=== PATIENT | female | born 2000 | race African-American/Black ===

== ENCOUNTER 2022-07-16 16:49 | Emergency (ER) | payer BC, SELFPAY ==
[2022-07-16 17:00] VITALS: BP 134/84; PULSE 106; RESP 16; TEMP 37.9; O2SAT 100
--- NOTE | 2022-07-16 17:18 | ED.URI ---
HPI - URI/Sore Throat General Stated Complaint: Sore throat Time Seen by Provider: 07/16/22 17:05 Source: patient Mode of arrival: ambulatory Limitations: no limitations History of Present Illness HPI Narrative: Ms. Mazariegos is a 21-year-old female patient presenting to the clinic today with complaints of a sore throat. She reports that she was seen at another urgent care 10 days ago and received antibiotics for sore throat. She has 1 more day left of her amoxicillin and she woke up this morning noticing some more exudate on her throat. She denies any fever or chills currently. She reports that she does have some cough and some nasal drainage with fatigue. Review of Systems Review of Systems: Pertinent positives per HPI. Patient denies any fever, chills, rash, headache, visual changes, dizziness, shortness of breath, chest pain, palpitations, nausea, vomiting, diarrhea, constipation, abdominal pain, or any urinary issues. PMFSH Comments At the time of my signature, I reviewed and agree with the nursing past medical, surgical, social, and family history. There is no relevant family history pertinent to the patient complaint. Exam Narrative: General: Well-developed, well nourished, in no apparent distress Head: Normocephalic, atraumatic Eyes: Pupils equally round and reactive to light bilaterally, EOM intact, sclera and conjunctive clear, no discharge, lids normal Ears: TMs intact and clear, ear canals clear, no drainage, grossly hearing normal. Nose: Nares patent, no discharge, no inflammation, no sinus tenderness. Mouth: Oropharynx without lesions or masses, good dentition, MMM. Oropharynx red, tonsillar enlargement with whitish exudate. Neck: Supple, trachea midline, no enlargement of anterior or posterior cervical nodes, no thyroid masses or goiter palpable. Cardio: Regular rate and rhythm, s1 and s2 normal, no murmur appreciated. Resp: Clear to auscultation bilaterally anteriorly and posteriorly, no rhonchi, rales, wheezing or rubs Course Course Emergency Course: Portions of this record may have been created with voice recognition software. Level of Care: Express Care Visit Vital Signs Vital signs: Vital Signs Temperature 37.9 C H 07/16/22 17:00 Pulse Rate 106 H 07/16/22 17:00 Respiratory Rate 16 07/16/22 17:00 Blood Pressure 134/84 07/16/22 17:00 Pulse Oximetry 100 07/16/22 17:00 Oxygen Delivery Room Air 07/16/22 17:00 Temperature 37.9 C H 07/16/22 17:00 Pulse Rate 106 H 07/16/22 17:00 Respiratory Rate 16 07/16/22 17:00 Blood Pressure 134/84 07/16/22 17:00 Pulse Oximetry 100 07/16/22 17:00 Oxygen Delivery Room Air 07/16/22 17:00 Vital signs reviewed MDM - URI/Sore Throat MDM Narrative Medical decision making narrative: At the time of visit patient is resting comfortably on the exam table. She has 1 more dose of antibiotic to take. She denies any rash. [place] testing was completed in the clinic and it was negative. I will get a throat culture and sent to the lab to see if there is any other type of bacterial infection. Supportive measures were discussed with the patient she is voiced understanding of discharge instructions and agrees to treatment plan Differential Diagnosis Differential diagnosis: Likely upper respiratory infection, pharyngitis and other ([place], viral infection) Lab Data Labs: [place] Screen Negative (Reference Range: Negative) Discharge Plan Discharge Clinical Impression: Exudative pharyngitis Patient Disposition: Home, Self-Care Condition: Stable Instructions: Antibiotic Form, Pharyngitis (ED) Additional Instructions: [place] testing was negative in the clinic today. We will send throat culture. Finish taking amoxicillin as prescribed Increase fluids and stay well hydrated Tylenol/motrin for pain/fever Flonase and OTC ant
== END 2022-07-16 18:04 | disposition home or self-care (01) ==
PROVIDERS: Emergency Provider Nurse Practitioner Family
DX: J02.9 Acute pharyngitis, unspecified (principal)
CPT/HCPCS: 36416; 86308; 87081; 99203; G0463

== ENCOUNTER 2023-03-23 15:00 | Emergency (ER) | payer BC, SELFPAY ==
[2023-03-23 15:06] VITALS: BP 144/66; PULSE 70; RESP 16; TEMP 37.1; O2SAT 100
--- NOTE | 2023-03-23 15:06 | ED.EYEPROB ---
HPI - Eye Problem General Chief complaint: Eye Problems Stated complaint: eye irritiation Time Seen by Provider: 03/23/23 15:09 Source: patient, RN notes reviewed and old records reviewed Mode of arrival: ambulatory Limitations: no limitations History of Present Illness HPI Narrative: 22-year-old female presents to the [facility] with complaints of bilateral eye irritation. Patient states that started in the right eye to 3 days ago, had crusting on Wednesday in the right eye. Woke up this morning in the left eye was crusted shut with redness. No treatment prior to arrival Works at a [employer] (ago): day(s) (3) Related Data Patient tetanus UTD: Yes Allergies Allergy/AdvReac Type Severity Reaction Status Date / Time No Known Allergies Allergy Verified 03/23/23 15:13 Review of Systems Review of Systems: All systems reviewed & are unremarkable except as noted in HPI and below Constitutional: Constitutional: Reports no additional constitutional complaints Eyes: Eyes: Reports as per HPI ENT: Reports system reviewed and no additional complaints, except as documented Cardiovascular: Cardiovascular: Reports no additional cardiovascular complaints, Denies chest pain and Denies dyspnea Respiratory: Respiratory: Reports no additional respiratory complaints, Denies chest congestion, Denies cough and Denies dyspnea Gastrointestinal: Gastrointestinal: Reports no additional gastrointestinal complaints, Denies abdominal pain, Denies nausea and Denies vomiting Musculoskeletal: Musculoskeletal: Reports no additional musculoskeletal complaints Integumentary/Breasts: Skin/Breast: Reports system reviewed and no additional complaints, except as docu Neurologic: Reports system reviewed and no additional complaints, except as documented Psychiatric: Psychiatric: Reports no additional psychiatric complaints Allergic/Immunologic: Allergic/Immunologic: Reports no additional allergic/immunologic complaints [facility] Past Medical History Medical History Patient denies medical problems Surgical History Surgical History (Updated 03/23/23 @ 15:15 by Colette Seymour APRN) No history of previous surgery Social History Social History (Updated 03/23/23 @ 15:15 by Colette Seymour APRN) Gender identity (if verbalized by the patient): Female Comments At the time of my signature, I reviewed and agree with the nursing past medical, surgical, social, and family history. There is no relevant family history pertinent to the patient complaint. Exam Const: General: cooperative, healthy appearing, comfortable, no acute distress, well developed, alert and well nourished Nutritional Appearance: well nourished Orientation/consciousness: patient oriented x3 Limitations: no limitations HENMT: Head: normal to inspection Ears: hearing grossly normal bilaterally and external ears normal Face/Nose/Sinus: Normal external nose present, Normal nares present, Normal nasal mucous membranes and turbinates present and normal facial exam Face and sinus: normal facial exam Mouth: Yes Normal oral and palatal mucosa present, Yes lip normal and Yes moist mucous membranes Throat: posterior oropharynx normal and uvula midline Eyes: General: appearance normal, both eyes and all related structures Alignment and Position: alignment normal Periorbital: periorbital findings normal Conjunctivae: conjunctival abnormality bilateral conjunctival injection localized (Bilateral lower lids) and discharge (Crusting noted to the bottom lid lashes left eye) Cornea: corneas normal Pupils: Equal, round and reactive pupils present EOM: EOMs intact bilaterally Neck: Neck: normal visual inspection, full ROM, no lymphadenopathy and no meningeal signs Chest: Chest palpation & inspection: normal inspection of the chest Resp: Effort & Inspection: normal respiratory effort and able to speak in complete sentences Auscultation: sergio
== END 2023-03-23 15:20 | disposition home or self-care (01) ==
PROVIDERS: Emergency Provider Nurse Practitioner
DX: H10.33 Unspecified acute conjunctivitis, bilateral (principal)
CPT/HCPCS: 99213; G0463

== ENCOUNTER 2025-03-23 13:52 | Emergency (ER) | payer BC, SELFPAY ==
[2025-03-23 14:08] VITALS: BP 125/64; PULSE 68; RESP 20; TEMP 36.4; O2SAT 100
--- NOTE | 2025-03-23 14:14 | ED_ITS ---
HPI - Female Genitourinary General Chief complaint: Urogenital-Female Stated complaint: STD testing Time Seen by Provider: 03/23/25 14:14 Source: patient Mode of arrival: ambulatory Limitations: no limitations History of Present Illness HPI Narrative: 24-year-old female presents with concern for STI. Patient is asymptomatic. Patient states that her partner told her to get checked because he has multiple partners. Patient's partner did not give her any other information such as if he tested positive or if he is having any symptoms. All systems reviewed and negative except as noted. Related Data Home Medications ?Medication ?Instructions ?Recorded ?Confirmed ?Last Taken ?Type No Home Medications 03/23/25 03/23/25 Unknown History Allergies Allergy/AdvReac Type Severity Reaction Status Date / Time No Known Allergies Allergy Verified 03/23/25 14:20 Review of Systems Review of Systems: CONSTITUTIONAL: Denies fever, chills, or sweats. EYES: Denies visual changes, redness, or discharge. ENT: Denies rhinorrhea, congestion, sore throat, or otalgia. CARDIOVASCULAR: Denies chest pain, palpitations, or edema. RESPIRATORY: Denies cough or dyspnea. GASTROINTESTINAL: Denies abdominal pain, nausea, vomiting, or diarrhea. GENITOURINARY: Denies dysuria or hematuria. SKIN: Denies rash or itching. MUSCULOSKELETAL: Denies back pain, joint pain, or myalgia. NEUROLOGIC: Denies headache, numbness, or weakness. PSYCHIATRIC: Denies anxiety or depression. All other systems reviewed are negative, except as documented in HPI. PMFSH Past Medical History Medical History Patient denies medical problems Surgical History Surgical History (Updated 03/23/23 @ 15:15 by Colette Seymour APRN) No history of previous surgery Social History Social History (Updated 03/23/23 @ 15:15 by Colette Seymour APRN) Gender identity (if verbalized by the patient): Female Comments At time of signature, agree with nursing past medical, surgical, social and family history. There is no relevant family history pertinent to the presenting complaint. Exam Narrative: GENERAL: This is a well-nourished, well-developed patient, in no apparent distress. HEAD: normocephalic, atraumatic. EYES: PERRL. Sclera clear/white. Vision is grossly intact. EARS: External ears normal NOSE: External nose normal NECK: Neck supple, non-tender without lymphadenopathy, masses or thyromegaly. CARDIOVASCULAR: Regular rate and rhythm without murmurs, gallops, or rubs. RESPIRATORY: Clear to auscultation. Breath sounds equal bilaterally. No wheezes, rales, or rhonchi. SKIN: warm, Dry, intact with no suspicious lesions or rash, good texture and turgor. NEURO: awake, alert, and oriented to person, place and time. There were no obvious focal neurologic abnormalities. EXTREMITIES: No joint tenderness, effusion, or edema noted. Course Course Level of Care: Express Care Visit Vital Signs Vital signs: Vital Signs Temperature 36.4 C 03/23/25 14:08 Pulse Rate 68 03/23/25 14:08 Respiratory Rate 20 03/23/25 14:08 Blood Pressure 125/64 03/23/25 14:08 Pulse Oximetry 100 03/23/25 14:08 Oxygen Delivery Room Air 03/23/25 14:08 Temperature 36.4 C 03/23/25 14:08 Pulse Rate 68 03/23/25 14:08 Respiratory Rate 20 03/23/25 14:08 Blood Pressure 125/64 03/23/25 14:08 Pulse Oximetry 100 03/23/25 14:08 Oxygen Delivery Room Air 03/23/25 14:08 Reviewed MDM - Female Genitourinary MDM Narrative Medical decision making narrative: urinalysis normal. test negative. STI testing sent off for Trichomonas, gonorrhea and chlamydia. Patient will wait for test results prior to treating with antibiotics. Patient is asymptomatic. Please be advised this is a medical document. It is intended for [id number] communication. It is written in medical language and may contain unfamiliar abbreviations or verbiage. Medical documents are intended to carry relevant information, facts as evident, and the clinical opinion of the practitioner at the time of the encounter. This report may have been done utilizing a voice recognition system. Attempts have been made to correct errors. However, there may be uncorrected grammatical, spelling, and recognition errors present. The file time of this note does not necessarily represent the time of service. Lab Data Labs: Lab Results 03/23/25 Range/Units 14:18 POC Urine Color Yellow POC Urine Clarity Clear POC Urine pH 7.0 POC Ur Specif [place] 1.015 POC Urine Protein Negative (Negative) POC Ur Glucose (UA) Negative (Negative) POC Urine Ketones Negative (Negative) POC Urine Blood Negative (Negative) POC Urine Nitrite Negative (Negative) POC Urine Bilirubin Negative (Negative) POC Urine Urobilinogen 0.2 POC U Leukocyte Esteras Negative (Negative) POC Urine HCG, Qual Negative (Negative) Discharge Plan Discharge Clinical Impression: Concern about STD in female without diagnosis Patient Disposition: Home Condition: Stable Instructions: Sexually Transmitted Diseases (ED) Additional Instructions: your urinalysis and test were negative today. Urine test were sent off for gonorrhea, chlamydia and Trichomonas. Test results may take 3-5 days. If one of your test results is positive we will call you at that time and prescribed treatment. 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 Patient Language: Samoan Prescriptions: No Action No Home Medications Follow-up/Referrals: PHYSICIAN,FRICTION SAW OPERATOR [Primary Care Provider] - Time of Disposition: 14:24
[2025-03-23 14:24] LABS: BEDSIDEPREGUCG Negative (Negative); EDUAAPPEAR Clear; EDUABILI Negative (Negative); EDUABLOOD Negative (Negative); EDUACOLOR1 Yellow; EDUAGLUCOSE Negative (Negative); EDUAKETONE Negative (Negative); EDUALEUKO Negative (Negative); EDUANITRATE Negative (Negative); EDUAPROTEIN Negative (Negative); EDUASPGRAVITY 1.015; EDUAUROBILI 0.2
[2025-03-23 18:55] LABS: Trichomonas Vag PCR NOT DETECTED (NOT DETECTE)
[2025-03-23 19:17] LABS: Chlamydia trachomatis NOT DETECTED (NOT DETECTE); Neisseria gonorrhoeae PCR NOT DETECTED (NOT DETECTE)
== END 2025-03-23 14:29 | disposition home or self-care (01) ==
PROVIDERS: Emergency Provider Nurse Practitioner Family
DX: Z20.2 Contact with and (suspected) exposure to infections with a predominantly sexual mode of transmission (principal)
CPT/HCPCS: 81003; 81025; 87491; 87591; 87661; 99213; G0463

== ENCOUNTER 2025-04-03 11:08 | Emergency (ER) | payer BC, SELFPAY ==
[2025-04-03 11:21] VITALS: BP 135/74; PULSE 81; RESP 16; TEMP 36.6; O2SAT 100
--- OUTSIDE RECORDS SUMMARY | 2025-04-03 11:33 | XMS_ITS | Data Portability ---
Author Organization [employer] [facility] , [facility] Address [address] [place] [address] Assessment No assessment recorded. Plan of Treatment Reminders Order Date Submit Date Provider Last Modified By Organization Details Last Modified Time Details Appointments ANNUAL/W ELL WOMAN EST 2024 10:30A M CHAMP SOBC Not available Not available Not available Lab pap, LB + CT/NG/TV + reflex HPV mRNA E6/E7 2021 022 [place] [facility], [address] [place], [address], 04/30/2022 09:44:58 Referral None recorded . Procedures None recorded . Surgeries None recorded . Imaging None recorded . Medication Orders None recorded . Patient TargetsNo targets recorded. Patient Instructions Encounter Date Encounter Id Patient Instructions Last Modified By Organization Details Last Modified Time 04/28/2022 [id number] Patient Health Questionnaire-9* [email or web address] Not available 05/05/2022 14:02:04 learning about depression screening Not available 04/28/2022 15:17:42 weight managemen t education Not available 04/28/2022 15:17:42 body mass index: care instructions [email or web address] Not available 04/28/2022 15:17:42 Reason for Referral None Reported. Results Created Date Observation Date Name Description Value Unit Range Abnormal Flag Note LastModifiedBy Organization Detail LastModifiedTime 04/28/20 22 04/30/2022 THINP REP PAP REFLE X HPV MRNA E6/E7 , CT/NG , TRICH clinical information: normal Infor matio n not provi ded Not Available [facility] - [address] [address] [place], [address], 04/30/2022 09:44:58 04/28/20 22 04/30/2022 THINP REP PAP REFLE X HPV MRNA E6/E7 , CT/NG , TRICH LMP: normal NONE GIVEN Not Available [address] [place], [address], 04/30/2022 09:44:58 04/28/20 22 04/30/2022 THINP REP PAP REFLE X HPV MRNA E6/E7 , CT/NG , TRICH prev. Pap: normal NONE GIVEN Not Available [address], [address], 04/30/2022 09:44:58 04/28/20 22 04/30/2022 THINP REP PAP REFLE X HPV MRNA E6/E7 , CT/NG , TRICH prev. BX: normal NONE GIVEN Not Available [address], [address], 04/30/2022 09:44:58 04/28/20 22 04/30/2022 THINP REP PAP REFLE X HPV MRNA E6/E7 , CT/NG , TRICH source: normal Endoc ervix Not Available [address], [address], 04/30/2022 09:44:58 04/28/2004/30/2022 THINP REP PAP REFLE X HPV MRNA E6/E7 , CT/NG , TRICH statement of adequacy: normal Satis facto ry for evalu ation . Endoc ervic al/tr ansfo rmati on zone compo nent prese nt. Age and/o r menst rual statu s not provi ded Not Available [address] [place], [address], 04/30/2022 09:44:58 04/28/20 22 04/30/2022 THINP REP PAP REFLE X HPV MRNA E6/E7 , CT/NG , TRICH interpretati on/result: normal Negat say for intra epith elial lesio n or lela young . Not Available [address] [address] [place], [address], 04/30/2022 09:44:58 04/28/20 22 04/30/2022 THINP REP PAP REFLE X HPV MRNA E6/E7 , CT/NG , TRICH cytotechnolo gist: normal BKA, CT( CP) CT scree giovani locat ion: [address] [address] [place] [address] Not Available [facility] [address] [address] [place], [address], 04/30/2022 09:44:58 04/28/2004/30/2022 THINP REP PAP REFLE X HPV MRNA E6/E7 , CT/NG , TRICH review cytotechnolo gist: normal MEF, CT( CP) CT scree giovani locat ion: [address] [address] [place] [address] Not Available [facility] [address] [address] [place], [address], 04/30/2022 09:44:58 04/28/2004/30/2022 THINP REP PAP REFLE X HPV MRNA E6/E7 , CT/NG , TRICH comment EXPLA NATOR Y NOTE: The Pap is a scree giovani test for cervi galileo cance r. It is not a diagn ostic test and is subje ct to false negat say and false posit say resul ts. It is most relia ble when a satis facto ry sampl e, regul marcell obtai sheron, is submi tted with relev ant clini galileo findi ngs and histo ry, and when the Pap resul t is evalu ated along with histo arnulfo and curre nt clini galileo infor matio n. Not Available [facility] [address] [address] [place], [address], 04/30/2022 09:44:58 04/28/20 22 04/30/2022 THINP REP PAP REFLE X HPV MRNA E6/E7 , CT/NG , TRICH chlamydia trachomatis RNA, tma, urogenital NOT DETECT ED not detect ed normal Not Available [facility] [address], [address], 04/30/2022 09:44:58 04/28/20 22 04/30/2022 THINP REP PAP REFLE X HPV MRNA E6/E7 , CT/NG , TRICH neisseria gonorrhoeae RNA, tma, urogenital NOT DETECT ED not detect ed normal Not Available [facility] [address] [address] [place], [address], 04/30/2022 09:44:58 04/28/20 22 04/30/2022 THINP REP PAP REFLE X HPV MRNA E6/E7 , CT/NG , TRICH comment The patito tical perfo rmanc e arsenio cteri stics of this assay , when used to test SureP ath(T M) speci mens have been deter mined by [employer] ostic s. The modif icati ons have not been clear ed or appro deepak by the FDA. This assay has been valid ated pursu ant to the CLIA regul ation s and is used for clini galileo purpo ses. For addit ional randa barney refer to https ://ed ati on.qu quanArtspace. MaSpatule.com/f aq/FA Q154 (This link is being provi ded for clari dubois/ edward castañeda purpo ses only. ) Not Available [facility] [address] [address] [place], [address], 04/30/2022 09:44:58 04/28/20 22 04/30/2022 THINP REP PAP REFLE X HPV MRNA E6/E7 , CT/NG , TRICH trichomonas vaginalis, ql tma, Pap vial NOT DETECT ED not detect ed normal The patito tical perfo rmanc e arsenio cteri stics of this assay have been deter mined by [employer] ostic [employer]. The modif icati ons have not been clear ed or appro deepak by the FDA. This assay has been valid ated pursu ant to the CLIA regul ation s and is used for clini galileo purpo ses. For addit ional infor randa plata refer to http: //steve ulrich stdia gnost ics.c om/ faq/T bandar merlos (This link is being provi ded for infor jayy dubois/ edward zaldivarona l purpo ses only. ) Not Available [facility] [address] [place], [address], 04/30/2022 09:44:58 Result Notes None recorded. 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 ; Progress : Stable Added By: Selene Bermeo Add to Current Problems : NO ProblemS tatus: Resolve Not Available [facility] 2 22:07:06 Amenorrh ea 62584960 Completed 202004/07/2021 Amenorrh ea, unspecif ied; Progress : Stable Added By: Rosy Tadeo Add to Current Problems : NO ProblemS tatus: Resolve Not Available [facility] 2 22:07:[address] Concept Completed 202009/08/2021 Encounte r for follow-u p examinat ion after complete d treatmen t for conditio ns other than malignan t neoplasm ; Progress : Stable Added By: Selene Bermeo Add to Current Problems : NO ProblemS tatus: Resolve Not Available [facility] 2 22:07:04 Acute vaginiti s 48694721 Completed 202004/07/2021 Acute vaginiti s; Progress : Stable Added By: Rosy Tadeo Add to Current Problems : NO ProblemS tatus: Resolve Not Available [facility] 2 22:07:05 Sampling of vagina for Papanico laou smear Completed 202004/07/2021 Encounte r for gynecolo gical examinat ion (general ) (routine ) without abnormal findings ; Progress : Stable Added By: Mer Walden Add to Current Problems : NO ProblemS tatus: Resolve Not Available [facility] 2 22:07:03 Uses combined oral contrace ption 170932384 Completed 202004/07/2021 Encounte r for initial prescrip tion of contrace ptive pills; Severity : Moderate Progress : Stable Added By: Selene Bermeo Add to Current Problems : NO ProblemS tatus: Resolve Not Available [facility] 1 20:10:12 Chloride level - finding 832200785 Completed 202009/08/2021 Abnormal finding of blood chemistr y, unspecif ied; Progress : Stable Added By: Selene Bermeo Add to Current Problems : NO ProblemS tatus: Resolve Not Available [facility] 2 22:07:03 Uses combined oral contrace ption 880141210 Active 2020 Encounte r for initial prescrip tion of contrace ptive pills; Progress : Stable Added By: Selene Bermeo Add to Current Problems : NO ProblemS tatus: Resolve; Start Date : 03/28/20 Encou nter for surveill ance of contrace ptive pills; Progress : Stable Added By: Rosy Tadeo Add to Current Problems : YES ProblemS tatus: Current Not Available [facility] 2 22:07:03 Prediabe luda 332462280 Active 2020 Prediabe luda; Progress : Stable Added By: Selene Bermeo Add to Current Problems : YES ProblemS tatus: Current Not Available [facility] 2 22:07:04 Problem Notes None recorded. Medical Equipment None Reported. Allergies No known drug allergies Medications Name Sig Start Date Stop Date Status Note LastModified by Organization Details LastModified Time fluconazo le 150 mg tablet TAKE 1 TABLET BY MOUTH NOW AND THEN REPEAT IN 5-7 DAYS IF THERE ARE SYMPTOMS 04/28 completed Not Available Not Available Not Available metronida zole 0.75 % (37.5 mg/5 gram) vaginal gel INSERT 1 APPLICAT ORFUL VAGINALL Y AT BEDTIME FOR 5 NIGHTS 04/28 completed Not Available Not Available Not Available dextroamp hetamine- amphetami ne 10 mg tablet TAKE 1 TABLET BY MOUTH EVERY MORNING 04/28 completed Not Available Not Available Not Available terconazo le 0.8 % vaginal cream insert 1 applicat orful by vaginal route once daily at bedtime for 3 days 04/07 completed terconaz ole 0.8 % Vaginal Cream RxNorm: 670510 Allow Substitu tion: True Refill Denied: No Edited by: fabrizio(Rosy Roche ) on 04/07/20 Stopped by: fabrizio(Rosy Roche ) on 04/07/20 Not Available Not Available Not Available metronida zole 500 mg tablet take 1 tablet (500 mg) by oral route 2 times per day for 7 days 05/08 completed metroNID AZOLE 500 mg oral tablet RxNorm: 033209 Allow Substitu tion: True Refill Denied: No Edited by: fabrizio(Rosy Roche ) on 05/08/20 Stopped by: fabrizio(Rosy Roche ) on 05/08/20 Not Available Not Available Not Available metformin ER 500 mg tablet,ex tended release 24 hr take 1 tablet by mouth daily with evening meal 09/09 completed metFORMI N 500 mg oral Tablet, Extended Release 24 hr RxNorm: 165340 Allow Substitu tion: True Refill Denied: No Edited by: fabrizio(Rosy Roche ) on 09/09/20 Stopped by: fabrizio(Rosy Roche ) on 09/09/20 Not Available Not Available Not Available dextroamp hetamine- amphetami ne 5 mg tablet TAKE 1 TABLET BY MOUTH EVERY AFTERNOO N 04/28 completed Not Available Not Available Not Available azithromy mehran 500 mg tablet take 2 tablet (1000 mg) by oral route once as a single dose 04/07 completed azithrom ycin 500 mg oral tablet RxNorm: 237793 Allow Substitu tion: True Refill Denied: No Edited by: fabrizio(Rosy Roche ) on 04/07/20 Stopped by: fabrizio(Rosy Roche ) on 04/07/20 Not Available Not Available Not Available 12/11 (28) 1 mg-20 mcg (21)/75 mg (7) tablet TAKE 1 TABLET BY MOUTH EVERY DAY 2021 active Not Available Not Available Not Avai lable metformin ER 500 mg tablet,ex tended release 24hr (osmotic) TAKE 1 TABLET BY MOUTH ONCE DAILY WITH THE EVENING MEAL 04/28 completed METFORMI N ER 500 MG OSMOTIC TB Refill Denied: No Edited by: Clair Hoff) on 06/04/20 21 Stopped by: Clair Hoff) on Not Available Not Available Not Available metronida zole 1 % topical gel APPLY 1 APPLICAT OR (TOPICAL ) 1 TIME PER DAY FOR 5 DAYS 04/28 completed Not Available Not Available Not Available Vitals Date Recorded Body height Body mass index (BMI) Body weight Body temperature Systolic blood pressure Diastolic blood pressure Provider Name and Address Organization Details Last Updated DateTime 2 162.56 cm 28.8 kg/m2 59514.8 g 98 [degF] 124 mm[Hg] 72 mm[Hg] Mer Walden [facility] 2 15:08:53 Social History Question Answer Notes LastModified by Organizat ion Details LastModified Time Tobacco Smoking Status Never Smoker Mer Walden [facility] 04/28/2022 15:11:27 If You Are , What Was Your Level Of Alcohol Consumption Prior To ? Occasional Information not available 04/28/2022 Are You Blind Or Do You Have Difficulty Seeing? No Information not available 04/28/2022 Are You Deaf Or Do You Have Serious Difficulty Hearing? No Information not available 04/28/2022 What Type Of Diet Are You Following? REGULAR Information not available 04/28/2022 Which Illicit Or Recreational Drugs Have You Used? Marijuana Information not available 04/28/2022 What Is Your Relationship Status? Single Information not available 04/28/2022 Are You Sexually Active? Yes Information not available 04/28/2022 Have You Used IV Drugs? No Information not available 04/28/2022 Sex: Unknown Functional Status Question Answer Note LastModified by Organizat ion Details LastModified Time Do you use any illicit or recreational drugs? Yes Information not available 04/28/2022 Do you or have you ever used any other forms of tobacco or nicotine? No Information not available 04/28/2022 What is your level of alcohol consumption? Occasional Information not available 04/28/2022 What is your exercise level? Occasional Information not available 04/28/2022 Mental Status None recorded. Family History Relationship Description Onset Age of this Age Resolved Age Notes LastModified by Organization Details LastModified Time Father Disorder of coronary artery [email or web address] Not available 05/2022 12:57:14 Mother Hypertensive disorder [email or web address] Not available 05/2022 12:57:25 Medical History Condition Response Other Cancer N High Blood Pressure N Colon Cancer N Cytomegalovirus N Hyperthyroidism N MRSA N Breast Cancer N Herpes (HSV) N Blood Transfusion N Lung Cancer N Depression N Hypothyroidism N Incontinence N Panic Attacks N Neurological Disorder N Deep Vein Thrombosis N Anxiety Disorder N Autoimmune disease N Arthritis N Tuberculosis/Positive PPD N Shingles N Polycystic Ovarian Syndrome N Cervical Cancer N Hematuria N Chlamydia N Stroke N Varicosities N Seasonal allergies N Crohn's Disease N Alzheimer's/Dementia N COPD/Emphysema N Endometriosis N HPV/Genital Warts N IBS (Irritable Bowel Syndrome) N History of Abnormal Pap N High Cholesterol N Liver Disease N Kidney Infection N Fibromyalgia N Ulcer N Kidney Disease N HIV N Gallbladder disease N Sickle Cell Disease/Trait N Von Willebrand disease N ADD/ADHD N Eating Disorder N Anemia N Diabetes Mellitus (non-insulin dependent ) N Multiple Sclerosis N Ovarian Problems N Gonorrhea N Frequent Urinary Tract infections N Osteopenia N Headaches/migraines N GERD (reflux) N Ovarian Cancer N Diabetes (insulin dependent) N Seizures/Epilepsy N Fibroids N Asthma N Heart Attack N Lupus N Endometrial Cancer N Rubella N Blood Clotting Disorder N Bipolar Disorder N Diabetes Mellitus (during ) N Ulcerative Colitis N Hepatitis N Heart Disease N Pulmonary Embolism N RPR N Chicken Pox N Osteoporosis N Gynecological History Statement/Question Response HPV Vaccine N Date of Last Pap Smear Current Control Method BCPs Age at Menarche 12 Date of LMP 04/04/2022 Obstetrics History GPAL:G 0 P 0 0 0 0 Past Encounters Encounter ID Performer Location Encounter Start Date Encounter Closed Date Diagnosis/Indication Diagnosis SNOMED-CT Code Diagnosis ICD10 Code Diagnosis Note [id number] Selene Bermeo CNM [facility] [address] [place] [address] 04/28/2022 15:00:20 04/28/2022 15:33:43 Gynecologic examination 49126413 Z01.419 21 y.o. here for annual exam. - Pap and STI testing done today - Contracept ion: desire none at this time - Family h/o breast cancer __none - Depression screen NEG - BMI counseling , diet and exercise reviewed - STI prevention discussed - Dietary supplement s: multivitam in, Vit D, fish oil - RTO for annual or PRN Screening for malignant neoplasm of cervix 544936738 Z12.4 Depression screening 171 306077 Z13.31 Health Concerns Section Related Observation LastModified by Organization Detai ls LastModified Time None Recorded Concern Status LastModified by Organization Details LastModified Time None Recorded Advance Directives Directive None Recorded Payers Insurance Date Sequence Insurance Name Policy Number Policy Pichardo Covered Member ID Pichardo Member ID Guarantor Name 03/29/2025 1 [place] [employer] [id number] Davion Velasquez [id number] Yolanda Velasquez Notes Date Note Type Note Provider Name and Address Organization Details Recorded Time 04/28/2022 text/html Annual GYNReport ed bypatient.Menstrua l cycle:Normal menses Urinary symptoms:No hematuria; No incontinence Vulva:No genital lesion Vagina:Normal vaginal discharge Breast:No breast pain; No breast lump; No nipple discharge Sexual complaints:No sexual complaints; No pain during intercourse; Normal libido Menopausal Symptoms:No menopausal symptoms; Normal vaginal lubrication Psychological symptoms:No depression; No anxiety; No PMDD was wanting to regulate her own hormones and stop bcp Selene Bermeo CNM [address] [facility], [place], [address], [facility] 04/28/2022 15:29:24 OBGyn Episode No OBEpisode recorded.
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
[2025-04-03] MEDS: NAPROXEN 250 MG TABLET PO (13:25)
== END 2025-04-03 13:30 | disposition home or self-care (01) ==
PROVIDERS: Emergency Provider Emergency Medicine
DX: S39.012A Strain of muscle, fascia and tendon of lower back, initial encounter (principal); V89.2XXA Person injured in unspecified motor-vehicle accident, traffic, initial encounter
CPT/HCPCS: 99283; A9270